=== PATIENT | male | born 1990 | race Two or more races ===

== ENCOUNTER 2018-06-28 20:30 | Emergency (ER) | payer BC ==
[~2018-06-28] VITALS: Ht 167.6 cm; Wt 72.6 kg
--- NOTE | 2018-06-28 22:56 | NUR ---
[facility] FAMILY C/O SORE THROAT AFTER [place] TRIP. BACK ON TUESDAY. PT AAOX3, VSS. DENIES SOB, DIZZINESS, N/V, FEVER @ THIS TIME. PT SEEN & EVAL'D BY DIESI BEE. LABS DRAWN & RAPID STREP DONE. WILL CONT TO MONITOR.
[2018-06-28 23:23] LABS: MONOTEST NEGATIVE (NEGATIVE)
[2018-06-28 23:53] VITALS: BP 122/85
== END 2018-06-28 23:53 | disposition home or self-care (01) ==
LOC: ER 20:32
DX: J02.9 Acute pharyngitis, unspecified (principal)
CPT/HCPCS: 36415; 71045-TC; 86308-TC; 86403-TC; 87070-TC; A4606; Z7610